=== PATIENT | female | born 1955 | race African-American/Black ===

== ENCOUNTER → 2016-03-09 | Outpatient (CLI) | payer MEDICARE ==
[2014-11-20 10:49] VITALS: BP 101/53
[~2016-03-09] MED LIST: DICL100G7 TP; EZET10TA3 PO; FISH OIL OMEGA1 EACH PO; FURO-68 PO; LACT10SO26 PO; LACT20SO PO; Lactulose PO; NADO40TA PO; OMEG100T PO; OMEP20TA63 PO; PHEN100C4 PO; RIFA550T PO; SPIR100T PO; TRAM-29 PO; TRAM50TA PO
--- NOTE | 2016-03-10 08:50 | KCIC ---
Bilateral digital screening mammograms with CAD: HISTORY COMPARISON Comparison is made to previous studies dated 03/04/2015 and 12/11/2013. FINDINGS Breast density category B. The skin and nipples show no abnormalities. No abnormal lymph nodes are seen in the axilla. The breast parenchyma shows scattered fibroglandular density. There appear to be some clustered calcifications in the retroareolar 9 o'clock position of the right breast. These may be associated with a small parenchymal density. Further evaluation with coned magnification views and ultrasound is recommended. There are no other dominant masses, suspicious calcifications or architectural distortions. Some additional scattered benign appearing calcifications and vascular calcifications are seen. IMPRESSION Clustered calcifications appear to be developing in the retroareolar 9 o'clock position of the right breast. These may be associated with a small parenchymal density. Recommend further evaluation with additional coned magnification views and ultrasound. This study was interpreted with the benefit of Computerized Aided Detection (CAD). Mammography is not 100% sensitive in detecting breast cancer. Therefore, a self breast exam and a clinical breast exam are very important. A negative mammogram does not negate a clinically suspicious finding and should not result in a delay in biopsying a clinically suspicious abnormality. BI-RADS category 0: Incomplete. Additional imaging is recommended. This patient's information has been entered into a reminder system for the patient to be notified with the results of this examination and a target date for her next mammograms. Electronically signed by: Cele Becerra MD (Mar 10, 2016 08:48:48)
== END | disposition home or self-care (01) ==
LOC: KCIC MAMMO 12:56
PROVIDERS: ATTEND Internal Medicine
DX: Z12.31 Encounter for screening mammogram for malignant neoplasm of breast (principal)
CPT/HCPCS: 77052; G0202; 77067